=== PATIENT | male | born 1935 | race Caucasian/White ===

== ENCOUNTER 2016-06-06 21:50 | Emergency (ER) | payer MEDICARE ==
[~2016-06-06 21:50] MED LIST: OMNICEF 300MG300 MG PO
[2016-06-06] MEDS ORDERED: PERCOCET 325 MG1 TA2 PO (23:27)
== END 2016-06-06 23:39 | disposition home or self-care (01) ==
LOC: ED 21:50
DX: S52.591A Other fractures of lower end of right radius, initial encounter for closed fracture (principal); S05.12XA Contusion of eyeball and orbital tissues, left eye, initial encounter; W18.09XA Striking against other object with subsequent fall, initial encounter; Y93.89 Activity, other specified; Y92.018 Other place in single-family (private) house as the place of occurrence of the external cause
CPT/HCPCS: A4565

== ENCOUNTER → 2017-12-26 | Outpatient (CLI) | payer MEDICARE ==
[2016-06-06 23:47] VITALS: BP 150/68
[~2017-12-26] MED LIST changes: +PERCOCET 325 MG1 TA2 PO
== END ==
LOC: RAD 13:07
DX: M25.562 Pain in left knee (principal)

== ENCOUNTER → 2018-04-06 | Outpatient (CLI) | payer MEDICARE ==
[2016-06-06 23:47] VITALS: BP 150/68
== END ==
LOC: RAD 11:30
DX: M50.31 Other cervical disc degeneration, high cervical region (principal); M40.292 Other kyphosis, cervical region

== ENCOUNTER → 2019-11-27 | Outpatient (CLI) | payer MEDICARE ==
[2016-06-06 23:47] VITALS: BP 150/68
[2019-11-27 12:42] LABS: HEMATOCRIT 35.4 % (42.0-52.0); HEMOGLOBIN 11.2 g/dL (13.5-18.0); MEAN CELL VOLUME 94 fl (78-100); MEAN CORPUSCULAR HEMOGLOBIN 30 pg (27-31); MEAN CORPUSCULAR HGB CONC 32 g/dL (33-37); PLATELET COUNT 239 K/mm3 (130-400); RED BLOOD COUNT 3.75 M/mm3 (4.20-5.60); WHITE BLOOD COUNT 7.8 K/mm3 (4.8-10.8)
[2019-11-27 12:54] LABS: LYMPHOCYTE 20 % (20-51); MONOCYTE 14 % (3-10); NEUTROPHILS 66 % (42-75)
[2019-11-27 12:55] LABS: ALBUMIN 3.6 g/dL (3.4-4.8); POTASSIUM 4.2 mmol/L (3.5-5.1)
[2019-11-27 12:56] LABS: CALCIUM 9.3 mg/dL (8.3-10.5)
[2019-11-27 12:57] LABS: URINE APPEARANCE CLEAR; URINE BILIRUBIN NEGATIVE (NEGATIVE); URINE BLOOD TRACE (NEGATIVE); URINE COLOR YELLOW; URINE GLUCOSE NEGATIVE (NEGATIVE); URINE KETONE NEGATIVE (NEGATIVE); URINE LEUKOCYTE ESTERASE NEGATIVE (NEGATIVE); URINE NITRATE NEGATIVE (NEGATIVE); URINE PROTEIN(semi-quant) TRACE mg/dL (NEGATIVE); URINE UROBILINOGEN NORMAL (NORMAL)
[2019-11-27 12:58] LABS: TOTAL PROTEIN 8.2 g/dL (6.2-8.1); URINE MUCUS PRESENT (NOT PRESENT)
[2019-11-27 13:00] LABS: TOTAL BILIRUBIN 0.7 mg/dL (0.2-1.2)
[2019-11-27 13:04] LABS: MAGNESIUM 1.88 mg/dL (1.60-2.60)
[2019-11-27 13:34] LABS: ERYTHROCYTE SEDIMENTATION RATE 94 mm/hr (0-20)
[2019-11-30 17:59] LABS: VITAMIN E 22.6 mg/L (())
== END ==
LOC: LAB 12:19
PROVIDERS: Internal Medicine
DX: Z12.5 Encounter for screening for malignant neoplasm of prostate (principal); I87.2 Venous insufficiency (chronic) (peripheral); K90.9 Intestinal malabsorption, unspecified; E78.2 Mixed hyperlipidemia; D64.9 Anemia, unspecified; R20.2 Paresthesia of skin

== ENCOUNTER 2019-12-17 11:23 | Emergency (ER) | payer MEDICARE ==
[~2019-12-17] VITALS: Ht 175.3 cm; Wt 90.0 kg
[2019-12-17] MEDS ORDERED: MELOXICAM15 MG PO (11:59)
[2019-12-17 12:07] LABS: HEMATOCRIT 33.3 % (42.0-52.0); HEMOGLOBIN 10.6 g/dL (13.5-18.0); MEAN CELL VOLUME 93 fl (78-100); MEAN CORPUSCULAR HEMOGLOBIN 30 pg (27-31); MEAN CORPUSCULAR HGB CONC 32 g/dL (33-37); PLATELET COUNT 319 K/mm3 (130-400); RED BLOOD COUNT 3.57 M/mm3 (4.20-5.60); RED CELL DISTRIBUTION WIDTH 16.7 % (11.5-14.5); WHITE BLOOD COUNT 11.4 K/mm3 (4.8-10.8)
[2019-12-17 12:16] LABS: NEUTROPHILS 83 % (42-75)
[2019-12-17 12:17] LABS: LYMPHOCYTE 6 % (20-51); MONOCYTE 8 % (3-10)
[2019-12-17 12:18] LABS: ALBUMIN 3.2 g/dL (3.4-4.8)
[2019-12-17 12:19] LABS: POTASSIUM 4.2 mmol/L (3.5-5.1)
[2019-12-17 12:20] LABS: CALCIUM 9.1 mg/dL (8.3-10.5)
[2019-12-17 12:21] LABS: TOTAL PROTEIN 8.4 g/dL (6.2-8.1)
[2019-12-17 12:23] LABS: TOTAL BILIRUBIN 0.7 mg/dL (0.2-1.2)
[2019-12-17 16:34] VITALS: BP 145/64
== END 2019-12-17 17:00 | disposition short-term general hospital (02) ==
LOC: ED 11:23
PROVIDERS: Nurse Practitioner Primary Care
DX: R53.1 Weakness (principal); R52 Pain, unspecified; L89.322 Pressure ulcer of left buttock, stage 2; Z20.828 Contact with and (suspected) exposure to other viral communicable diseases; Z85.46 Personal history of malignant neoplasm of prostate
CPT/HCPCS: Q9967